=== PATIENT | female | born 1980 | race Caucasian/White ===

== ENCOUNTER 2017-05-21 20:06 | Emergency (ER) | payer OTHER ==
[~2017-05-21] VITALS: Ht 154.9 cm; Wt 114.0 kg
[~2017-05-21 20:06] MED LIST: ACET325T14 PO; AMOX-291 PO; ANTIBIOTIC PO; IBUP200C5 PO; LEVO500T47 PO; PREN1TAB60 PO; PROG50VI IM; RANI75TA12 PO
[2017-05-21 20:08] VITALS: BP 118/86
[2017-05-21] MEDS ORDERED: FLUORESCEIN OPHTHALMIC 1 MG STRIP ONE (20:20)
[2017-05-21] MEDS ORDERED: PROPARACAINE OPHTH 0.5%, 15ML ONE (20:20)
== END 2017-05-21 21:01 | disposition home or self-care (01) ==
LOC: ED 20:38
DX: H10.13 Acute atopic conjunctivitis, bilateral (principal); B30.9 Viral conjunctivitis, unspecified
CPT/HCPCS: 99283

== ENCOUNTER 2017-11-03 13:43 | Emergency (ER) | payer OTHER ==
[~2017-11-03] VITALS: Ht 154.9 cm; Wt 115.1 kg
[2017-11-03] MEDS ORDERED: SUMATRIPTAN 6MG/0.5ML SQ ONE ×2 (14:24→14:30)
[2017-11-03] MEDS ORDERED: KETOROLAC 30 MG/1 ML ONE (14:25)
[2017-11-03] MEDS ORDERED: DIPHENHYDRAMINE 50 MG/ML, 1ML ONE (14:25)
[2017-11-03] MEDS ORDERED: METOCLOPRAMIDE 5 MG/ML, 2ML ONE (14:25)
[2017-11-03] MEDS ORDERED: METOCLOPRAMIDE 5 MG/ML, 2ML IVPush ONE (14:30)
[2017-11-03] MEDS ORDERED: DIPHENHYDRAMINE 50 MG/ML, 1ML IVPush ONE (14:30)
[2017-11-03] MEDS ORDERED: SODIUM CHLORIDE FLUSH 10ML SYR IVF ONE (14:30)
[2017-11-03] MEDS ORDERED: SODIUM CHLORIDE 0.9% 1,000ML IVBOLUS ONE (14:30)
[2017-11-03] MEDS ORDERED: KETOROLAC 30 MG/1 ML IVPush ONE (14:30)
[2017-11-03 14:35] LABS: BASOPHILS # (AUTO) 0.03 x10^3/uL (0-0.1); BASOPHILS % (AUTO) 0 % (0-1); EOSINOPHILS # (AUTO) 0.47 x10^3/uL (0-0.4); EOSINOPHILS % (AUTO) 7 % (1-7); LYMPHOCYTES # (AUTO) 1.31 x10^3/uL (1-3.4); LYMPHOCYTES % (AUTO) 19 % (22-44); MD NO; MEAN CORPUSCULAR HEMOGLOBIN 27.4 pg (27.0-34.8); MEAN CORPUSCULAR HGB CONC 33.2 g/dL (32.4-35.8); MEAN CORPUSCULAR VOLUME 82.5 fL (80-100); MEAN PLATELET VOLUME 7.8 fL (7.4-10.4); MONOCYTES # (AUTO) 0.48 x10^3/uL (0.2-0.8); MONOCYTES % (AUTO) 7 % (2-9); NEUTROPHILS # (AUTO) 4.64 x10^3/uL (1.8-6.8); NEUTROPHILS % (AUTO) 67 % (42-75); PLATELET COUNT 266 x10^3/uL (130-400); RED CELL DISTRIBUTION WIDTH 17.2 % (9.6-15.2)
[2017-11-03 14:43] LABS: ALBUMIN 2.9 g/dL (3.4-5.0); ANION GAP 8 mmol/L (5-15); CALCIUM 8.3 mg/dL (8.5-10.1); CHLORIDE 110 mmol/L (98-107); CREATININE 0.56 mg/dL (0.55-1.02)
[2017-11-03 14:49] LABS: CULTURE INDICATED? YES; MICROSCOPIC INDICATED
[2017-11-03 15:38] VITALS: BP 128/78
== END 2017-11-03 16:19 | disposition home or self-care (01) ==
LOC: ED 14:40
DX: N30.90 Cystitis, unspecified without hematuria (principal); G44.52 New daily persistent headache (NDPH)
CPT/HCPCS: 36415; 71046; 80048; 81001; 82040; 85025; 87077; 87086; 96361; 96372; 96374; 96375; 99285; J1200; J1885; J2765; J3030; J7030; 87186

== ENCOUNTER 2018-02-14 22:59 | Emergency (ER) | payer OTHER ==
[~2018-02-14] VITALS: Ht 154.9 cm; Wt 112.0 kg
[2018-02-14] MEDS ORDERED: ALBUTEROL/IPRATROPIUM 2.5MG/0.5MG, 3 ML NPPB ONE (23:30)
[2018-02-14] MEDS ORDERED: ALBUTEROL/IPRATROPIUM 2.5MG/0.5MG, 3 ML ONE (23:47)
[2018-02-15 01:24] VITALS: BP 128/76
== END 2018-02-15 01:34 | disposition home or self-care (01) ==
LOC: ED 23:59
DX: J45.31 Mild persistent asthma with (acute) exacerbation (principal); J00 Acute nasopharyngitis [common cold]; F17.210 Nicotine dependence, cigarettes, uncomplicated
CPT/HCPCS: 71046; 93005; 94640; 99284; J7512; J7620

== ENCOUNTER 2018-06-23 15:33 | Emergency (ER) | payer OTHER ==
[~2018-06-23] VITALS: Ht 154.9 cm; Wt 113.4 kg
[~2018-06-23 15:33] MED LIST changes: +IBUP-1623 PO; -IBUP200C5 PO
[2018-06-23] MEDS ORDERED: ALBUTEROL/IPRATROPIUM 2.5MG/0.5MG, 3 ML NPPB ONE (16:00)
[2018-06-23] MEDS ORDERED: ALBUTEROL/IPRATROPIUM 2.5MG/0.5MG, 3 ML ONE (16:14)
[2018-06-23] MEDS ORDERED: ALBUTEROL SULFATE 2.5 MG/3 ML NPPB PRN (16:30)
[2018-06-23 17:22] VITALS: BP 101/70
== END 2018-06-23 17:32 | disposition home or self-care (01) ==
LOC: ED 17:15
DX: J45.41 Moderate persistent asthma with (acute) exacerbation (principal)
CPT/HCPCS: 71046; 94640; 99284; J7512; J7620

== ENCOUNTER 2018-08-24 11:13 | Emergency (ER) | payer OTHER ==
[~2018-08-24] VITALS: Ht 152.4 cm; Wt 120.1 kg
--- NOTE | 2018-08-24 11:33 | NUR ---
First contact with pt. Pt changing in to hospital gown and has steady gait and balance. NADN. No defecits observed.
--- NOTE | 2018-08-24 11:46 | NUR ---
Gave report to Milagro Rn's. All questions answered.
--- NOTE | 2018-08-24 11:58 | NUR ---
Note undone in EDM - 08/24/18 at 1221 by ALYSSA FIRST CONTACT WITH PT. PT C/O VAGINAL BLEEDING WITH CLOT X 1 WEEK. PT DENIES DUE TO TUBAL LEGATION/N/V/D/ABD PAIN AT THIS TIME. PT STATES LM WAS ABOUT 1M AGO, USES 1 PAD/HR NOW. NO ABD MASS NOTED. PT AOX4. RESPS EVEN AND UNLABORED. BP AND SPO2 MONITORS IN PLACE. CALL LIGHT WITHIN REACH. PT PROVIDED WARM BLANKET.
--- NOTE | 2018-08-24 11:58 | NUR ---
FIRST CONTACT WITH PT. PT C/O VAGINAL BLEEDING WITH CLOT X 1 WEEK. PT DENIES DUE TO TUBAL LEGATION/N/V/D/ABD PAIN AT THIS TIME. PT STATES LMP WAS ABOUT 1M AGO AND USES 1 PAD/HR NOW. NO ABD MASS NOTED. PT AOX4. RESPS EVEN AND UNLABORED. BP AND SPO2 MONITORS IN PLACE. CALL LIGHT WITHIN REACH. PT PROVIDED WARM BLANKET.
[2018-08-24 12:13] LABS: ALANINE AMINOTRANSFERASE 38 U/L (12-78); ALBUMIN 3.3 g/dL (3.4-5.0); ANION GAP 10 mmol/L (5-15); CALCIUM 8.3 mg/dL (8.5-10.1); CHLORIDE 105 mmol/L (98-107)
[2018-08-24 12:15] LABS: INTERNATIONAL NORMALIZED RATIO 0.93 (0.93-1.1); PROTHROMBIN TIME 9.9 Seconds (9.6-11.5)
[2018-08-24 12:18] LABS: ALKALINE PHOSPHATASE 66 U/L (45-117); BILIRUBIN,TOTAL 0.2 mg/dL (0.2-1.0); CREATININE 0.62 mg/dL (0.55-1.02); TOTAL PROTEIN 7.1 g/dL (6.4-8.2)
[2018-08-24 12:20] LABS: BASOPHILS # (AUTO) 0.02 x10^3/uL (0-0.1); BASOPHILS % (AUTO) 0 % (0-1); EOSINOPHILS # (AUTO) 0.17 x10^3/uL (0-0.4); EOSINOPHILS % (AUTO) 3 % (1-7); LYMPHOCYTES # (AUTO) 1.56 x10^3/uL (1-3.4); LYMPHOCYTES % (AUTO) 28 % (22-44); MD NO; MEAN CORPUSCULAR HEMOGLOBIN 28.5 pg (27.0-34.8); MEAN CORPUSCULAR HGB CONC 33.8 g/dL (32.4-35.8); MEAN CORPUSCULAR VOLUME 84.4 fL (80-100); MONOCYTES # (AUTO) 0.43 x10^3/uL (0.2-0.8); MONOCYTES % (AUTO) 8 % (2-9); NEUTROPHILS # (AUTO) 3.47 x10^3/uL (1.8-6.8); NEUTROPHILS % (AUTO) 62 % (42-75); PLATELET COUNT 265 x10^3/uL (130-400); RED BLOOD COUNT 4.55 x10^6/uL (3.82-5.3); RED CELL DISTRIBUTION WIDTH 17.2 % (9.6-15.2)
--- NOTE | 2018-08-24 12:24 | NUR ---
PT AMB TO BR WITH STEADY GAIT.
--- NOTE | 2018-08-24 13:03 | NUR ---
pt rresting on abraham, pt a&o, resps evne and unlabored. bp and spo2 monitors in place. call light in reach. awaiting us and dispo. pt updated with POC.
--- NOTE | 2018-08-24 13:10 | NUR ---
pt to US
--- NOTE | 2018-08-24 13:37 | NUR ---
pt back to room from us. edmd at bedside and explaining results. pt aox4. resps even and unlabored. pt denies any needs, concerns and pain at this time. awaiting dc at this time.
[2018-08-24 13:49] VITALS: BP 137/75
--- NOTE | 2018-08-24 13:56 | NUR ---
PT GIVEN DC INSTRUCTIONS. PT AOX4. RESPS EVEN AND UNLABORED. PT AMB TO DC WITH STEADY GAIT. NO ACUTE DISTRESS AT DC.
== END 2018-08-24 13:51 | disposition home or self-care (01) ==
LOC: ED 11:57
DX: N92.0 Excessive and frequent menstruation with regular cycle (principal); N92.1 Excessive and frequent menstruation with irregular cycle
CPT/HCPCS: 36415; 76830; 80053; 84703; 85025; 85610; 85730; 86850; 86900; 99284

== ENCOUNTER 2018-12-12 14:35 | Emergency (ER) | payer OTHER ==
[~2018-12-12] VITALS: Ht 154.9 cm; Wt 122.5 kg
[2018-12-12] MEDS ORDERED: SODIUM CHLORIDE FLUSH 10ML SYR IVF ONE (15:00)
[2018-12-12] MEDS ORDERED: DEXAMETHASONE 4 MG/ML, 1ML IVPush ONE (15:00)
[2018-12-12] MEDS ORDERED: DIPHENHYDRAMINE 50 MG/ML, 1ML IVPush ONE (15:00)
[2018-12-12] MEDS ORDERED: FAMOTIDINE 20 MG/2 ML IVPush ONE (15:00)
[2018-12-12] MEDS ORDERED: DIPHENHYDRAMINE 50 MG/ML, 1ML ONE (15:08)
[2018-12-12] MEDS ORDERED: DEXAMETHASONE 4 MG/ML, 5ML ONE (15:08)
[2018-12-12] MEDS ORDERED: FAMOTIDINE 20 MG/2 ML ONE (15:08)
--- NOTE | 2018-12-12 15:20 | NUR ---
PT PRESENTS TO ED WITH C/O SHORTNESS OF BREATH AND EYE SWELLING STARTING YESTERDAY. PT REPORTS CONGESTION STARTING ON SATURDAY. PT A&O, RESPS EVEN AND UNLABORED, ABLE TO SPEAK IN FULL SENTENCES WITHOUT DIFFICULTY. EKG TAKEN IN TRIAGE. BILATERAL PERIORBITAL EDEMA NOTED. NO DROOLING OR OTHER ANGIOEDEMA NOTED. PT PLACED ON ALL MONITORS. PIV PLACED. PT MEDICATED PER EMAR, TOLERATED WELL.
[2018-12-12] MEDS ORDERED: ALBUTEROL SULFATE 2.5 MG/3 ML ONE (15:52)
--- NOTE | 2018-12-12 15:59 | NUR ---
RT AT BEDSIDE FOR TX. PT REMAINS A&O, RESPS EVEN AND UNLABORED, PT REPORTS IMPROVEMENT IN SOB SINCE MEDICATION ADMIN.
[2018-12-12] MEDS ORDERED: ALBUTEROL SULFATE 2.5 MG/3 ML NPPB ONE (16:00)
[2018-12-12] MEDS ORDERED: ALBUTEROL/IPRATROPIUM 2.5MG/0.5MG, 3 ML NPPB ONE (16:00)
[2018-12-12 17:27] VITALS: BP 119/69
--- NOTE | 2018-12-12 17:28 | NUR ---
PT GIVEN DC INSTRUCTIONS AND SCRIPT. PT EDUCATED REGARDING ALBUTEROL AND PREDNISONE RX. PT A&O, RESPS EVEN AND UNLABORED. PT REPORTS SOB IMPROVED S/P MEDS AND BREATHING TX. PERIORBITAL EDEMA SHOWS MILD IMPROVEMENT. PT REMAINS IN NSR WITH NO ECTOPY NOTED. PT EDUCATED NOT TO DRIVE D/T BENADRYL GIVEN. PIV DC'D WITH TIP INTACT. PT AMB TO DC DESK WTIH STEADY GAIT, MOTHER AT BEDSIDE TO DRIVE PT HOME.
== END 2018-12-12 17:31 | disposition home or self-care (01) ==
LOC: ED 15:35
DX: J45.31 Mild persistent asthma with (acute) exacerbation (principal)
CPT/HCPCS: 71046; 93005; 96374; 96375; 99283; J1100; J1200; J3490; J7613

== ENCOUNTER 2018-12-21 13:41 | Emergency (ER) | payer OTHER ==
[~2018-12-21] VITALS: Ht 154.9 cm; Wt 115.5 kg
[2018-12-21 14:00] VITALS: BP 118/69
[2018-12-21] MEDS ORDERED: ALBUTEROL SULFATE 2.5 MG/3 ML ONE (14:22)
[2018-12-21] MEDS ORDERED: ALBUTEROL SULFATE 2.5 MG/3 ML NPPB ONE (14:30)
== END 2018-12-21 14:55 | disposition home or self-care (01) ==
LOC: ED 14:30
DX: J15.9 Unspecified bacterial pneumonia (principal); J45.909 Unspecified asthma, uncomplicated
CPT/HCPCS: 71046; 93005; 94640; 99283; J7512; J7613

== ENCOUNTER 2019-07-10 00:50 | Emergency (ER) | payer OTHER ==
[~2019-07-10] VITALS: Ht 160 cm; Wt 151.6 kg
[~2019-07-10 00:50] MED LIST changes: +ALBU18HF INH; +ALBU2.5V NEB; +LEVO750T26 PO; +PRED-402 PO; +RANI-244 PO; -RANI75TA12 PO
[2019-07-10] MEDS ORDERED: ALBUTEROL/IPRATROPIUM 2.5MG/0.5MG, 3 ML NPPB SCH (01:30)
[2019-07-10] MEDS ORDERED: methylPREDNISolone SOD SUCC 125 MG/2 ML IVPush ONE (01:30)
[2019-07-10] MEDS ORDERED: SODIUM CHLORIDE 0.9% 1,000ML IVBOLUS ONE (01:30)
[2019-07-10] MEDS ORDERED: methylPREDNISolone SOD SUCC 125 MG/2 ML ONE (01:44)
[2019-07-10 01:51] LABS: MEAN CORPUSCULAR HEMOGLOBIN 25.8 pg (27.0-34.8); MEAN CORPUSCULAR HGB CONC 32.5 g/dL (32.4-35.8); MEAN CORPUSCULAR VOLUME 79.6 fL (80-100); MEAN PLATELET VOLUME 7.7 fL (7.4-10.4); PLATELET COUNT 213 x10^3/uL (130-400); RED BLOOD COUNT 4.76 x10^6/uL (3.82-5.3); RED CELL DISTRIBUTION WIDTH 19.2 % (9.6-15.2)
[2019-07-10 02:00] LABS: ALBUMIN 2.9 g/dL (3.4-5.0); ANION GAP 6 mmol/L (5-15); CALCIUM 7.9 mg/dL (8.5-10.1); CHLORIDE 103 mmol/L (98-107); CREATININE 0.71 mg/dL (0.55-1.02)
[2019-07-10 02:02] LABS: RAPID INFLUENZA A Negative (Negative); RAPID INFLUENZA B POSITIVE (Negative)
[2019-07-10 02:40] LABS: BASOPHILS # (AUTO) 0.01 x10^3/uL (0-0.1); BASOPHILS % (AUTO) 0 % (0-1); EOSINOPHILS # (AUTO) 0.08 x10^3/uL (0-0.4); EOSINOPHILS % (AUTO) 3 % (1-7); LYMPHOCYTES # (AUTO) 0.53 x10^3/uL (1-3.4); LYMPHOCYTES % (AUTO) 20 % (22-44); MD SCAN; MONOCYTES # (AUTO) 0.35 x10^3/uL (0.2-0.8); MONOCYTES % (AUTO) 14 % (2-9); NEUTROPHILS # (AUTO) 1.62 x10^3/uL (1.8-6.8); NEUTROPHILS % (AUTO) 63 % (42-75)
--- NOTE | 2019-07-10 03:07 | NUR ---
Break RN: ERP at bedside for re-evaluation.
--- NOTE | 2019-07-10 03:14 | NUR ---
patient discharged with prescriptions and instruction. verbalized understanding.
[2019-07-10 03:15] VITALS: BP 115/73
== END 2019-07-10 03:20 | disposition home or self-care (01) ==
LOC: ED 03:08
DX: J45.41 Moderate persistent asthma with (acute) exacerbation (principal); J10.1 Influenza due to other identified influenza virus with other respiratory manifestations; F17.210 Nicotine dependence, cigarettes, uncomplicated; R11.2 Nausea with vomiting, unspecified
CPT/HCPCS: 36415; 71045; 80048; 82040; 85025; 87400; 93005; 96361; 96374; 99284; 99406; J2930; J7030